=== PATIENT | female | born 1960 | race Caucasian/White ===

== ENCOUNTER 2023-01-04 08:00 | Inpatient (IN) | payer OTHER ==
[~2023-01-04] VITALS: Ht 170.2 cm; Wt 117.5 kg
[~2023-01-04 08:00] MED LIST: ARTHROTEC1 UDTAB.E1 PO; CALAN SR120 MG PO; GLIMEPIRIDE4 MG PO; HYZAAR 100/25 T1 TAB PO; LANOXIN0.25 MG PO; METFORMIN HCL500 MG PO; PRAVASTATIN SOD40 MG PO; VITAMIN D1000 UNIT PO
[2023-01-04] MEDS ORDERED: ZETIA10 MG PO (09:06)
[2023-01-04] MEDS ORDERED: [UNRECOGNIZED DRUG - OTHER] (09:06)
[2023-01-04] MEDS ORDERED: CLARITIN10 MG PO (09:07)
[2023-01-04] MEDS ORDERED: CARDIZEM CD180 M1 PO (09:07)
[2023-01-04] MEDS ORDERED: LIPITOR40 M1 PO (09:07)
[2023-01-04] MEDS ORDERED: SINGULAIR10 MG PO (09:08)
[2023-01-04] MEDS ORDERED: CARDURA1 MG PO (09:08)
[2023-01-04] MEDS ORDERED: GABAP PO (09:09)
[2023-01-04] MEDS ORDERED: ZANAFLEX4 M1 PO (09:09)
[2023-01-04] MEDS ORDERED: TRULICITY3 MG/0.5 M (09:10)
[2023-01-04] MEDS ORDERED: PEPCID AC10 MG PO (09:10)
[2023-01-04] MEDS ORDERED: CLONAZEPAM0.5 MG PO (09:11)
== END 2023-01-09 15:17 | DRG 470 ==
LOC: SURH 01-05 08:00 → O/R 01-05 09:36 → SURH 01-05 13:45 → OB/GYN 01-05 17:41
PROVIDERS: ADMIT Orthopaedic Surgery; ATTEND Orthopaedic Surgery
PROC: 0SRD0JZ Replacement of Left Knee Joint with Synthetic Substitute, Open Approach (ICD-10-PCS; principal; 2023-01-05 13:45)
PROC: BB24Y0Z Computerized Tomography (CT Scan) of Bilateral Lungs using Other Contrast, Unenhanced and Enhanced (ICD-10-PCS; 2023-01-07)
DX: M17.12 Unilateral primary osteoarthritis, left knee (principal); D62 Acute posthemorrhagic anemia; I10 Essential (primary) hypertension; E11.9 Type 2 diabetes mellitus without complications; Z79.4 Long term (current) use of insulin